=== PATIENT | male | born 1940 | race Caucasian/White ===

== ENCOUNTER → 2019-05-13 17:07 | Outpatient (CLI) | payer MEDICARE, BC ==
[2019-05-13 18:26] LABS: BASOPHILS 0.2 % (0-2); EOSINOPHILS 2.6 % (0-7); HEMATOCRIT 32.9 % (42.0-54.0); HEMOGLOBIN 10.1 g/dL (13.5-17.5); IMMATURE GRANULOCYTES 0.2 % (0-5); LYMPHOCYTES 13.5 % (15-50); MCH 26.2 pg (26.0-34.0); MCHC 30.7 g/dL (31.0-37.0); MCV 85.5 fL (80.0-100.0); MONOCYTES 10.2 % (2-11); NEUTROPHILS 73.3 % (40-80); PLATELET COUNT 234 10x3/uL (130-400); RBC 3.85 10x6/uL (4.20-6.10); RDW 15.9 % (11.5-14.5); WBC 6.7 10x3/uL (4.8-10.8)
[2019-05-13 18:42] LABS: ALKALINE PHOSPHATASE 72 U/L (46-116); ALT (SGPT) 41 U/L (10-68); CALC OSMOLALITY 279 mosm/kg (275-300); CALCIUM 8.4 mg/dL (8.5-10.1); CARBON DIOXIDE 28.5 mmol/L (21.0-32.0); CHLORIDE - SERUM 103 mmol/L (98-107); CREATININE - SERUM 0.6 mg/dL (0.6-1.3); GLUCOSE 100 mg/dL (74-106); POTASSIUM - SERUM 3.9 mmol/L (3.5-5.1); SODIUM 138 mmol/L (136-145); UREA NITROGEN 25 mg/dL (7-18); eGFR NON AFRICAN AMERICAN > 90 mL/min (90-120)
== END | disposition home or self-care (01) ==
LOC: D.LABREF 17:07
PROVIDERS: ATTEND Family Medicine
DX: M62.521 Muscle wasting and atrophy, not elsewhere classified, right upper arm (principal)

== ENCOUNTER → 2019-05-14 10:59 | Outpatient (CLI) | payer MEDICARE, BC | END | disposition home or self-care (01) | LOC: D.LABREF 10:59 | PROVIDERS: ATTEND Family Medicine | DX: M62.521 Muscle wasting and atrophy, not elsewhere classified, right upper arm (principal) ==

== ENCOUNTER → 2019-08-13 09:10 | Outpatient (CLI) | payer MEDICARE, BC | END | disposition home or self-care (01) | LOC: D.LABREF 09:10 | PROVIDERS: ATTEND Family Medicine | DX: Z51.81 Encounter for therapeutic drug level monitoring (principal) ==